=== PATIENT | male | born 1990 | race Caucasian/White ===

== ENCOUNTER 2017-10-18 18:34 | Emergency (ER) | payer MEDICAID, SELFPAY ==
[2017-10-18 18:35] VITALS: BP 137/59; PULSE 79; RESP 18; TEMP 36.6; O2SAT 99; BMI 21.2
== END 2017-10-18 19:30 | disposition left against medical advice (07) ==
LOC: ED 21:51
PROVIDERS: Emergency Provider Emergency Medicine; Family Provider Family Medicine; PCP Family Medicine
DX: R69 Illness, unspecified (principal)

== ENCOUNTER 2020-03-14 21:29 | Emergency (ER) | payer MEDICAID, SELFPAY ==
[2020-03-14 21:30] VITALS: BP 127/92; PULSE 86; RESP 15; TEMP 36.1; O2SAT 99; BMI 25.8
--- NOTE | 2020-03-14 22:21 | EKG12_ITS ---
Test Reason : GEN ILL Blood Pressure : / mmHG Vent. Rate : 075 BPM Atrial Rate : 075 BPM P-R Int : 124 ms QRS Dur : 098 ms QT Int : 346 ms P-R-T Axes : 058 053 026 degrees QTc Int : 386 ms Sinus rhythm with marked sinus arrhythmia Otherwise normal ECG Confirmed by RITO MARCOS, STEPHANIE ([id number]), newspaper or periodical editor SAMUEL DOOLEY ([id number]) on 03/16/2020 1:06:31 PM Referred By: CARLOZ Confirmed By:STEPHANIE VERAS MD
--- NOTE | 2020-03-14 22:26 | ED.RN ---
NO OLD EKGS ON FILE
[2020-03-14 22:39] VITALS: PULSE 80; RESP 15; O2SAT 98
--- NOTE | 2020-03-14 22:50 | RAD_ITS ---
STUDY: X-RAY CHEST REASON FOR EXAM: Male, 29 years old. GENERALIZED WEAKNESS. TECHNIQUE: Single AP portable view x2 of the chest. COMPARISON: None. FINDINGS: The lungs are clear and expanded. There is no demonstrated pleural abnormality. Normal size heart. Normal mediastinum and farooq. Normal visualized pulmonary arteries. Normal visualized aortic arch and descending thoracic aorta. Normal visualized thoracic spine. Normal visualized ribs, clavicles, and shoulders. There is no demonstrated abnormality of the visualized soft tissue structures of the upper abdomen. RAD/Chest 1 View (Portable) IMPRESSION: Normal x-ray examination of the chest. Electronically Signed: Marlin Edgar MD at 23:28 EST Tel , Service support ,
[2020-03-14 22:54] LABS: Basophil# 0.02 X10^3/uL; Basophil% 0.4 % (0-1); Eosinophil# 0.05 X10^3/uL; Hematocrit 47.5 % (40-54); Hemoglobin 16.4 g/dL (13.0-16.5); Lymphocyte % 30.9 % (19-41); Mean Corp Hgb Conc 34.5 g/dL (32-36); Mean Corpuscular Hgb 29.6 pg (27.0-32.0); Mean Corpuscular Volume 85.7 fL (80-94); Mean Platelet Vol. 12.4 fl (6.2-12.0); Monocyte# 0.47 X10^3/uL; Monocyte% 9.1 % (0-10); NRBC Flagged by Analyzer 0 % (0-5); Neutrophil # 3.03 X10^3/uL (2.7-7.7); Neutrophil % 58.4 % (47-70); Platelet Count 142 K/mm3 (150-450); RBC Distribution Width CV 11.9 % (11.6-14.6); RBC Distribution Width SD 37.4 fl (35.1-43.9); Red Blood Count 5.54 M/mm3 (4.6-6.2); White Blood Count 5.2 K/mm3 (4.4-11.0)
--- NOTE | 2020-03-14 22:56 | ED.DCSUM_ITS ---
History of Present Illness Chief Complaint: General Illness Informant: Patient Narrative: 29-year-old male with past medical history of SVT presents with concern for left-sided chest pain. States is been present over the past 2 days. States that he did have ablation for this surgery back in January which was 2 months ago. States that this pain is worse with inspiration. Denies any fever, chills, cough. States he has been restless at night. Denies any current smoking or drug abuse. Past Medical History - Allergies and Home Meds Allergies/Adverse Reactions: Allergies buspirone Allergy (Verified 03/14/20 21:33) NEEDS FOLLOW-UP clindamycin Allergy (Verified 03/14/20 21:33) Laryngospasms fluoxetine [From Prozac] Allergy (Verified 03/14/20 21:33) NEEDS FOLLOW-UP Sulfa (Sulfonamide Antibiotics) Allergy (Verified 03/14/20 21:33) Unknown acetaminophen [From Vicodin] Adverse Reaction (Verified 03/14/20 21:33) Itching hydrocodone bitartrate [From Vicodin] Adverse Reaction (Verified 03/14/20 21:33) Itching Prior records reviewed: Yes Past Medical History: - - SVT Surgical History: - - Ablation Lives: Spouse/ Significant Other Smoking Status: Former smoker Alcohol: None Drugs: None Review of Systems General: Denies: Chills, Fever, Sweats Eyes: Denies: Visual changes - bilaterally, Diplopia ENT: Denies: Rhinorrhea, Sore throat Cardiovascular: Reports: Chest pain. Denies: Palpitations Respiratory: Denies: Dyspnea, Cough, Dyspnea on exertion Gastrointestinal: Denies: Abdominal pain, Nausea, Vomiting, Diarrhea, Melena, Hematochezia Genitourinary: Denies: Dysuria, Hematuria, Frequency Musculoskeletal: Denies: Back pain, Extremity Pain Skin: Denies: Rash, Wounds Neurological: Denies: Headache, Weakness, Numbness Physical Exam Vital Signs/Narrative: Vital Signs Temp Pulse Resp BP Pulse Ox 03/14/20 22:39 80 15 98 03/14/20 21:30 97 F L 86 15 127/92 H 99 Inital Vital Signs reviewed: Yes General: Well nourished, Well developed, No Acute Distress Head: Normocephalic, Atraumatic Eyes: Perrl, EOMI ENT: Moist mucous membranes, No rhinorrhea Neck: Supple, Nontender Cardiovascular: Regular rate, Regular rhythm, No murmurs Respiratory: No distress, CTA bilaterally, Chest nontender Abdomen: Soft, Nontender, Nondistended, Normal bowel sounds Back: Nontender, Normal Inspection Extremities: Nontender, No edema Skin: Normal color, No rash Neurological: Alert, Oriented x3, Cranial nerves II-XII grossly intact, Normal Strength, Normal Sensation Psychological: Normal affect, Normal Mood Diagnostic/Tx/Re-eval Chest X-Ray - ED: 1 View, Read by ED Physician, Read by Radiologist Clinical Impression(s) from Imaging Studies Chest X-Ray 03/14/20 22:50 IMPRESSION: Normal x-ray examination of the chest. Electronically Signed: Marlin Edgar MD at 23:28 EST Tel , Service support , Laboratory Data 03/14/20 03/14/20 03/14/20 22:38 22:38 22:38 WBC 5.2 RBC 5.54 Hgb 16.4 Hct 47.5 MCV 85.7 MCH 29.6 MCHC 34.5 RDW Std Deviation 37.4 RDW Coeff of Jimmie 11.9 Plt Count 142 L MPV 12.4 H Immature Gran % (Auto) 0.200 Neut % (Auto) 58.4 Lymph % (Auto) 30.9 Mcpherson % (Auto) 9.1 Eos % (Auto) 1.0 Baso % (Auto) 0.4 Absolute Neuts (auto) 3.0 Absolute Lymphs (auto) 1.60 Nucleated RBC % 0 D-Dimer Quant (PE/DVT) <= 0.27 Sodium 143 Potassium 4.1 Chloride 108 H Carbon Dioxide 29.0 Anion Gap 6 BUN 8 Creatinine 0.94 Estim Creat Clear Calc 119.73 Est GFR (MDRD) Af Amer 121 Est GFR (MDRD) Non-Af 100 BUN/Creatinine Ratio 8.5 L Glucose 95 Calcium 8.8 Troponin I < 0.015 - Rhythm Strip Rhythm Strip: Sinus Rhythm Rate: 75 Ectopy: None - EKG Initial EKG Interpretation: Sinus Rhythm - Normal sinus rhythm at 75 bpm with sinus arrhythmia. AL interval 124 ms. QTC of 386 ms. No evidence of ST elevation or depression at this time. - Medical Decision Making Appears well and nontoxic. Vital signs within normal limits. EKG shows no acute ischemia. Chest x-ray negative. Lab work within normal limits including a troponin and D-dimer. Patient's heart rate has been controlled in the emergency department. Coronavirus negative. 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 Patient agreeable and discharged home in stable condition. Impression: 1. Atypical chest pain 2. History of SVT ED Disposition - Plan for ED Patient: Disposition: Home or Assisted Living Instructions: ED Chest Pain, Uncertain Cause Additional Instructions: Please follow up with your doctor. Return for new or worsening symptoms.
[2020-03-14 23:17] LABS: Anion Gap 6 (5-15); BUN 8 mg/dL (7-18); BUN/Creat Ratio 8.5 RATIO (10-20); Calcium,Total 8.8 mg/dL (8.5-10.1); Chloride 108 mmol/L (98-107); Creatinine, Serum 0.94 mg/dL (0.70-1.30); EST Glomerular Filtration Rate 100 mL/min (>60); Est Glom Filt Rate - Afr Amer 121 mL/min (>60); Estimated Creatinine Clearance 119.73 ml/min; Glucose 95 mg/dL (74-106); Potassium 4.1 mmol/L (3.5-5.1); Sodium Level 143 mmol/L (136-145)
[2020-03-14 23:27] LABS: D-Dimer Quantitative (DVT/PE) <= 0.27 FEU/ug/m (0.27-0.49)
[2020-03-15 00:06] VITALS: PULSE 70; RESP 12; O2SAT 99
== END 2020-03-15 00:11 | disposition home or self-care (01) ==
PROVIDERS: Emergency Provider Emergency Medicine
DX: R07.89 Other chest pain (principal); Z87.891 Personal history of nicotine dependence
CPT/HCPCS: 71045; 80048; 84484; 85025; 85379; 87426; 93005; 99284; A4216